=== PATIENT | male | born 1975 | race Caucasian/White ===

== ENCOUNTER 2018-04-16 07:43 | Emergency (ER) | payer MEDICAID ==
[~2018-04-16] VITALS: Ht 165.1 cm; Wt 66.1 kg
[2018-04-16 07:46] VITALS: BP 139/92; PULSE 110; RESP 20; Ht 165.1 cm; Wt 66.1 kg
[2018-04-16] MEDS ORDERED: IBUPROFEN 800 MG TAB PO ONE (08:00)
[2018-04-16] MEDS ORDERED: IBUP-1542 PO (08:09)
--- NOTE | 2018-04-16 08:14 | ERD ---
ER Documentation Chief Complaint Chief Complaint Complains of knee pain x 3 days HPI This is a 43-year-old male with a nonsignificant past medical history presents ED with complaints of left knee pain for the past 3 days. Patient admits to having chronic left knee pain as he had an injury roughly 1-1/2-2 years ago to the left knee. Patient states that during cold weather he starts to have increased painful range of motion and with walking up stairs. Patient denies any recent fall or injury to account for flareup of current knee pain. Patient denies decreased range of motion, weakness, tingling, numbness, lack sensation, fever, chills, swelling, redness surrounding the knee, history of IV drug abuse. Patient is requesting a xray in ED ROS All systems reviewed and are negative except as per history of present illness. Medications Home Meds Active Scripts Ibuprofen* (Motrin*) 600 Mg Tab, 600 MG PO Q6, #30 TAB Prov:TRACIE FRANK PA-C 04/16/18 Allergies Allergies: Coded Allergies: No Known Allergy (Unverified , 04/16/18) PMhx/Soc Medical and Surgical Hx: pt denies Medical Hx, pt denies Surgical Hx Hx Alcohol Use: No Hx Substance Use: No Hx Tobacco Use: No FmHx Family History: No diabetes Physical Exam Vitals Vital Signs Date Temp Pulse Resp B/P (MAP) Pulse Ox O2 O2 Flow FiO2 Time Delivery Rate 04/16/18 98.0 110 20 139/92 99 07:46 (108) Physical Exam Const: No acute distress Head: Atraumatic Eyes: Normal Conjunctiva ENT: Normal External Ears, Nose and Mouth. Neck: Full range of motion. No meningismus. Resp: Clear to auscultation bilaterally Cardio: Regular rate and rhythm, no murmurs Ext: No cyanosis, or edema Lower Extremity - bilateral: Skin: No laceration swelling, evidence of external trauma Compartments: Soft Motor: Full active range of motion hip/knee/ankle/foot Sensation: ntact to light touch FDWS/MF/LF/P surfaces. Bones: Moderate tenderness palpation along anterior patella and medial knee, iNontender pelvis/proximal tibia/ malleoli/foot Joints: No effusion or laxity Pulses/Perfusion: 2+ DP, Capillary refill < 2 seconds Results 24 hrs Current Medications Medications Dose Sig/Johan Start Time Status Last (Trade) Ordered Route PRN Stop Time Admin Dose Reason Admin Ibuprofen 800 mg ONCE ONCE 04/16/18 DC 04/16/18 (Motrin) PO 08:00 04/16/18 08:04 08:01 Procedures/MDM EKG, MONITORS, & DIAGNOSTIC IMAGING: [place] [address] Radiology Main Line: [phone] DIAGNOSTIC IMAGING REPORT Patient: MINI SORIANO : 1975 Age: 43 Sex: M MR #: [id number] DOS: 04/16/18 0758 Ordering MD: TRACIE FRANK PA-C Location: [facility] Room/Bed: PROCEDURE: Left knee x-ray CLINICAL INDICATION: left knee pain TECHNIQUE: AP, lateral and tunnel views of the left knee were obtained. COMPARISON: None FINDINGS: There is normal mineralization. No acute fracture or dislocation is seen. There are no significant degenerative changes. There is no joint effusion. There is no significant soft tissue swelling. IMPRESSION: Normal x-ray of the left knee. .Domingo Ambrocio MD, MD Date Time Electronically viewed and signed by .Domingo Ambrocio MD, MD on 04/16/2018 08:25 .A/ CC: TRACIE FRANK PA-C [id number] ER COURSE: The patient was given ibuprofen The medication was well tolerated and the patient reports improvement in symptoms. The patient was stable throughout ED course. I kept the patient and/or family informed of laboratory and diagnostic imaging results throughout the emergency room course. The patient was promptly evaluated and a treatment plan was devised based on H&P and other data. This plan was discussed with the patient who agreed and had no further questions or concerns prior to discharge. MEDICAL DECISION MAKIN-year-old male with a history of chronic left knee pain presents ED with complaints of flareup of left knee pain for the past 3 days. Patient is requesting a x-ray of the left knee in the emergency department today. X-rays are unremarkable. Advised patient that he needs to follow-up with the auto wheel alignment specialist or primary care physician to have advanced imaging such as an MRI performed. History and physical examination other data not consistent with emergent processes including but not limited to fracture, dislocation, tendon rupture, ischemia, neurovascular injury, compartment syndrome, septic joint, avascular necrosis, osteomyelitis, necrotizing fasciitis, septic joint, septic arthritis, or other emergent conditions. Patient's vitals are stable and can be managed outpatient with close follow-up. Advised patient to follow-up with primary care in the next 48 hours. Return to ED with any worsening symptoms. DISPOSITION PLAN: We discussed follow up with the patient's primary care doctor within 24 to 48 hours. Patient counseled regarding my diagnostic impression and care plan. Prior to discharge all questions answered. Pt agrees with treatment plan and understands strict return precautions. Precautionary instructions provided including instructions to return to the ER if not improving or for any worsening or changing symptoms or concerns. SPECIALIST FOLLOW UP RECOMMENDED: None Patient has been advised to follow up with primary care in 1-2 days. Disclaimer: Inadvertent spelling and grammatical errors are likely due to EHR/dictation software use and do not reflect on the overall quality of patient care. Also, please note that the electronic time recorded on this note does not necessarily reflect the actual time of the patient encounter. Blood Pressure Assessment: Patient's blood pressure was elevated (>120/80) but appears stable without evidence of hypertension emergency or urgency. The patient was counseled about the risks of hypertension and urged to pursue outpatient monitoring and therapy within a week with their primary care physician. Departure Diagnosis: Primary Impression: Knee pain Chronicity: acute Laterality: left Qualified Codes: M25.562 - Pain in left knee Condition: Stable Patient Instructions: Knee Pain, Uncertain Cause, Knee Sprain Referrals: SHIRA VSOS,ISMAEL VILLATORO,CELINE PERDUE,NISHA PRUETT,LISBETH VICTORIA,IN [facility] YOU HAVE RECEIVED A MEDICAL SCREENING EXAM AND THE RESULTS INDICATE THAT YOU DO NOT HAVE A CONDITION THAT REQUIRES URGENT TREATMENT IN THE EMERGENCY DEPARTMENT. FURTHER EVALUATION AND TREATMENT OF YOUR CONDITION CAN WAIT UNTIL YOU ARE SEEN IN YOUR DOCTORS OFFICE WITHIN THE NEXT 1-2 DAYS. IT IS YOUR RESPONSIBILITY TO MAKE AN APPOINTMENT FOR FOLOW-UP CARE. IF YOU HAVE A PRIMARY DOCTOR --you should call your primary doctor and schedule an appointment IF YOU DO NOT HAVE A PRIMARY DOCTOR YOU CAN CALL OUR PHYSICIAN REFERRAL HOTLINE AT IF YOU CAN NOT AFFORD TO SEE A PHYSICIAN YOU CAN CHOSE FROM THE FOLLOWING [facility] [address] [facility] [address] [facility] [address] [facility] [address] [facility] [address] [facility]. [facility] [address] Additional Instructions: Patient advised to return to the ED immediately for new or worsening symptoms. Patient advised to follow up with primary care provider in the next 24-48 hours. Patient verbalized understanding and agrees with treatment plan and course of action. If patient has no primary care they may follow up with one of the replaced [facility] listed on the following page or one of the options listed below [facility] [address] [place] [id number] or [facility] [address] [place] [address] or [facility] [address] [place] [address] TRACIE FRANK PA-C Apr 16, 2018 08:14
== END 2018-04-16 09:13 | disposition home or self-care (01) ==
LOC: FTE 07:43
DX: M25.562 Pain in left knee (principal)
CPT/HCPCS: 73562; Z7502; Z7610